=== PATIENT | female | born 1990 | race Caucasian/White ===

== ENCOUNTER → 2021-08-27 14:03 | Outpatient (CLI) | payer BC, SELFPAY ==
--- NOTE | ~2021-08-27 | US_ITS ---
US OB transvaginal DATE: 08/27/2021 14:28 INDICATION: Uncertain dates. History of preeclampsia. Last menstrual period 06/20/2021 TECHNIQUE: Real-time imaging via transvaginal approach COMPARISON: None FINDINGS: The uterus measures 9.0 cm height, 5.1 cm AP and 6.1 cm transverse dimension. There is a ge stational sac within the uterus, some internal debris but no yolk sac or normal pole is evident . Gestational sac size would be consistent with 6 weeks 2 days estimated gestational age, at which time well-defined yolk sac and pole would be expected in a normal gestation. IMPRESSION: Failed early intrauterine gestation Reviewed, dictated and finalized at [facility] Reviewed, dictated and finalized at [facility].
== END ==
PROVIDERS: Visit Provider Obstetrics & Gynecology Gynecology
DX: Z36.87 Encounter for antenatal screening for uncertain dates (principal); Z3A.01 Less than 8 weeks gestation of pregnancy
CPT/HCPCS: 76817

== ENCOUNTER 2023-10-04 02:20 | Day surgery (SDC) | payer BC, SELFPAY ==
[2023-09-21 14:07] VITALS: BMI 29.6
--- NOTE | 2023-09-21 14:08 | PC.NURSE ---
Report to the Outpatient Waiting Room, entrance under the green pavilion located off [facility], at time _0600_ on date _[id number]_. Planned Procedure Time: _0730_. Time changes happen often and if your time is changed the preop area will call you the afternoon before. - You and your visitor will be asked to self-screen and do not enter if you have any COVID symptoms. - A mask is optional within the hospital at this time. Patients may have clear liquids (water, carbonated beverages, clear teas, apple juice) until 3 hours prior to surgery with a maximum of 20 ounces. - No food from midnight until time of surgery Take the following medications with a SIP of water the morning of surgery: ___Escitalopram DO NOT STOP ANY OF YOUR OTHER PRESCRIPTION MEDICATIONS PRIOR TO SURGERY ?EXCEPT THE FOLLOWING Medications to discontinue per physician Prenatal vitamin and Vitamin d3 Date to take last epus__[id number] Please no make-up, nail south african, hairspray, perfume, deodorant, or body powder the day of surgery. No jewelry (including any body piercings) or valuables the day of surgery, leave them at home. Please take a shower or bath the night before, or the morning of, surgery with an antibacterial soap. Wear comfortable, loose fitting clothing. - Jewelry must be removed prior to entering the operating room. Rings and piercings that are not removed may be cut off. - The hospital will not accept responsibility for valuables. - Please leave all valuables, including medications, at home the day of surgery. If you are going home after surgery, a licensed charter and tour bus driver must drive you home. - NO public transportation without another adult if you receive anesthesia. - We recommend that an adult stay with you for 24 hours following discharge. - We also recommend that you do not drive, make important decision, drink alcoholic beverages, or take any drugs that were not prescribed by your health care provider for at least 24 hours after your discharge time. Follow any additional instructions given to you from your surgeon. If you or anyone in your household have experienced Covid symptoms in the past week, please notify your surgeon or the nurse liaison at the phone number below for possible testing. Telephone instructions given to _Gracie__and asked if any additional questions and then verbalized understanding. Patient advised to call surgeon office or pre surgery nurse liaison [phone] if any additional questions.
[2023-10-04] VITALS (13 sets, daily range): BP systolic 117–144; BP diastolic 83–100; PULSE 69–84; RESP 13–20; TEMP 36.3–36.7; O2SAT 94–100
[2023-10-04] MEDS: LACTATED RINGERS 1,000 ML 30 ML IV CONT ×2 (06:52→08:54)
[2023-10-04] MEDS: ACETAMINOPHEN 500 MG TABLET 1000 MG PO (06:52)
[2023-10-04] MEDS: OXYMETAZOLINE HCL 0.05% NAS 15 ML BTL (*BKC) 1 SPRAY NASAL (06:55)
--- NOTE | 2023-10-04 07:09 | PM.IMHP ---
H&P: HPI History of Present Illness Date/Time: 10/04/23 07:09 Chief Complaint: nasal polyps Narrative: nasal polyps Review of Systems Review of Systems: All systems reviewed & are unremarkable except as noted in HPI and below PMFSH Social History Social History Smoking status: Never smoker Living arrangements: with family Spiritual care concerns: No Meds Home Medications and Allergies Home Medications Medication Instructions Recorded Confirmed Type cholecalciferol (vitamin D3) 125 125 mcg PO DAILY 09/21/23 09/21/23 History mcg (5,000 unit) tablet (Vitamin D3) escitalopram oxalate 20 mg tablet 20 mg PO QAM 09/21/23 09/21/23 History famotidine 20 mg tablet 20 mg PO QPM 09/21/23 09/21/23 History gabapentin 100 mg tablet 100 mg PO QPM 09/21/23 09/21/23 History gabapentin 300 mg capsule 300 mg PO QPM 09/21/23 09/21/23 History loratadine 10 mg tablet 10 mg PO DAILY 09/21/23 09/21/23 History vitamins no.148-iron 27 1 cap PO DAILY 09/21/23 09/21/23 History mg-folate 1 mg-dha 205 mg capsule Allergies Allergy/AdvReac Type Severity Reaction Status Date / Time No Known Allergies Allergy Unverified 10/04/23 06:16 Vital Signs Vital Signs - 24 hr 10/04/23 06:15 Temperature 36.3 C L Pulse Rate 82 Respiratory Rate 16 Blood Pressure 144/100 H Pulse Oximetry 100 Oxygen Delivery Room Air Exam Narrative: left antrochoanal polyposis, chronic sinusitis. rest of exam wnl Assessment and Plan Assessment and plan (1) Nasal polyposis: Code(s): J33.9 - Nasal polyp, unspecified Status: Acute Plan This patient has significant left antrochoanal polyp, chronic sinusitis on the left. Here for left sided FESS, possible septoplasty, turbinoplasty. r/b/a reviewed, she understands and agrees to proceed with surgery. Refer to outpt H&P for further detail.
--- NOTE | 2023-10-04 07:11 | P.PNAN_ITS ---
Anes - Initial Pre Proc Eval Procedure: Operation Date: 10/04/23 07:30 Proposed Procedures p Image Guided Left Frontal Sinusotomy, Left Ethmoidectomy, Left Maxillary Antrostomy, Possible Bilateral Turbinate Reduction - Jonny Mcclellan MD s Endoscopic Septoplasty - Jonny Mcclellan MD Date/Time: 10/04/23 07:11 Surgeon: Jonny Mcclellan MD Pre Op Diagnosis: Nasal Polyps, Chr Sinusitis Patient Data Age: 33 Gender: F Height: 1.7 m Weight: 86 kg Last Vital Signs Temp 97.3 F L 10/04/23 06:15 Pulse 82 10/04/23 06:15 Resp 16 10/04/23 06:15 BP 118/92 H 10/04/23 07:09 Pulse Ox 100 10/04/23 06:15 O2 Del Method Room Air 10/04/23 06:15 Allergies Allergy/AdvReac Type Severity Reaction Status Date / Time No Known Allergies Allergy Unverified 10/04/23 06:16 Home Medications Medication Instructions Recorded Confirmed Type cholecalciferol (vitamin D3) 125 125 mcg PO DAILY 09/21/23 09/21/23 History mcg (5,000 unit) tablet (Vitamin D3) escitalopram oxalate 20 mg tablet 20 mg PO QAM 09/21/23 09/21/23 History famotidine 20 mg tablet 20 mg PO QPM 09/21/23 09/21/23 History gabapentin 100 mg tablet 100 mg PO QPM 09/21/23 09/21/23 History gabapentin 300 mg capsule 300 mg PO QPM 09/21/23 09/21/23 History loratadine 10 mg tablet 10 mg PO DAILY 09/21/23 09/21/23 History vitamins no.148-iron 27 1 cap PO DAILY 09/21/23 09/21/23 History mg-folate 1 mg-dha 205 mg capsule Patient hx anesthesia problems: none Family hx anesthesia problems: none Results Review: All pre-operative results and documents have been reviewed as part of the pre- operative evaluation. [facility] Social History Social History Smoking status: Never smoker Living arrangements: with family Spiritual care concerns: No Anes - Eval Final PreProcedure Day of Procedure 10/04/23 07:11 Patient weight: normal Heart: regular rate and rhythm Lungs: clear to auscultation Airway: Mallampati scale class II Neurological: alert and oriented Last oral intake: >/= 8 hours ASA classification: II Emergent: no Anesthetic plan: proceed Anesthesia type and monitoring: general ETT and standard monitoring Results Review: All pre-operative results and documents have been reviewed as part of the pre- operative evaluation. Informed Consent: The patient's anesthetic plan and its attendant risks and benefits were discussed with the patient/family/POA. Questions were solicited and answers provided to the satisfaction of the patient/family/POA.
--- NOTE | 2023-10-04 07:11 | WPDHPUPDATE1 ---
History and Physical Update Update Date/Time: 10/04/23 07:11 History and Physical has been reviewed, including an updated exam of the patient. There are NO changes in the patient's condition. Risks, benefits, and alternatives have been discussed and questions answered. Patient agrees to proceed with procedure.
[2023-10-04] MEDS: ceFAZolin 2 GM/D5W 50 ML 2 GM/50 ML BAG IVPB (07:30)
[2023-10-04] MEDS: LIDO 1%/EPINEPHRINE/PF 1:200,000 30 ML VIAL 10 ML XX (08:51)
--- NOTE | 2023-10-04 08:57 | W.PM.PROC2 ---
Procedure Note - Detailed Date of Procedure 10/04/23 Pre-op Diagnosis Nasal Polyps, Chr Sinusitis Post-op Diagnosis Same Procedure Performed Left maxillary antrostomy with tissue removal, left frontal sinusotomy, left ethmoidectomy, endoscopic septoplasty and turbinoplasty, image guided surgery Surgeon Jonny Mcclellan MD Anesthesia General Indications Nasal mass Findings Large nasal mass beginning in the left maxillary sinus along the posterior wall and extending into the nasopharynx and occluding the contralateral nasal passage and oropharynx. Mass was fully removed. The origin of the mass was resected to the bone, bone was shaved with drill, hemostasis obtained with suction bovie. Nasopore placed, no sawyer splints Description of Procedure On the date of procedure the patient was met in the preoperative area and risk and benefits of the procedure reviewed with the patient as documented in the H&P and they elected to proceed with surgery. Patient was brought back to the operating room by the anesthesia team and underwent general endotracheal anesthesia. Once an adequate plane of anesthesia was obtained a timeout was performed to assure the patient identification the patient here to be performed were correct. They were.The patient was then prepped and draped in the normal fashion for endoscopic sinus surgery. The diffusion image guidance system was calibrated and used for the entire case. Afrin-soaked pledgets were placed in the nasal cavities bilaterally. The entire case was performed under endoscopic visualization. Nasal endoscopy was performed at the beginning of the case. 1% lidocaine with 1:100,000 epinephrine was then injected into the root of the middle turbinate and lateral nasal wall. The left side was narrowed due to septal deviation.? Thus, septoplasty was required.? A left hemitransfixion incision was made in the left caudal septum and a mucoperichondrial flap was elevated in the usual fashion. The flap was elevated under endoscopic visualization and the remainder of the case was performed with endoscopic assistance. Using a D-knife, an incision was made through the cartilaginous septum with care to preserve the appropriate caudal and dorsal ?L-strut? of cartilage. The cartilage was then disarticulated from the bony-cartilaginous junction and the deviated cartilage was removed. Further deviated bone and cartilage was removed from the maxillary crest and posterior bony septum with care to avoid injury to the mucoperichondrial flap using a combination of dissection and Mar forceps. Once this was completed, the hemitransfixion incision was closed using simple interrupted 4-0 chromic suture. Attention was then directed towards the left side. The large mass, initially looked like polyp, was partially removed with forceps and a large specimen was sent for pathologic analysis. Then the remaining mass was removed with microdebrider until fully resected from nasopharynx and oropharynx. The middle turbinate was atrophied and lateralized. The natural sphenoid os was visualized, no disease involving it. The middle turbinate was then further medialized and total ethmoidectomy performed under image guidance with some inflammatory tissue and polyp removed with microdebrider. Attention was turned back to the maxillary sinus. It was filled with the mass. This was extensively debrided and the mass came out in pieces. It was seen to be originating from the posterior maxillary sinus wall on the left. After fully resecting all soft tissue, using straight and angled microdebriders, a [address] drill at 30k rpm was used to shave down the tumor to the bone and shave down the bone at its origin to fully resect and deal with nests of tissue potentially extending deep. After this, suction cautery was used on the posterior maxillary wall extensively for hemostasis. The SPA was not exposed or injured. Lastly, image guided frontal suction and sin
[2023-10-04] MEDS: ONDANSETRON INJ 4 MG/2 ML VIAL IV PUSH (09:41)
[2023-10-04] MEDS: SCOPOLAMINE 1 MG PATCH 1 PATCH TRANSDERM (10:10)
== END 2023-10-04 11:41 | disposition home or self-care (01) ==
PROVIDERS: PCP Nurse Practitioner; Visit Provider Otolaryngology
PROC: (CPT 31267; principal; 2023-10-04 07:30)
PROC: (CPT 30520; 2023-10-04 07:30)
DX: J33.8 Other polyp of sinus (principal); J33.9 Nasal polyp, unspecified; J32.9 Chronic sinusitis, unspecified
CPT/HCPCS: 31267; 31253; 30520; 30140; 61782; 88305; A9270; J0330; J0690; J1100; J1170; J1200; J2250; J2371; J2405; J2704; J3010; J7030; J7120